=== PATIENT | male | born 1970 | race Caucasian/White ===

== ENCOUNTER 2017-02-17 03:53 | Emergency (ER) | payer MEDICARE, OTHER | END 2017-02-17 05:30 | disposition home or self-care (01) | LOC: ER 03:53 | DX: K08.89 Other specified disorders of teeth and supporting structures (principal); R22.0 Localized swelling, mass and lump, head; K02.9 Dental caries, unspecified; Z86.73 Personal history of transient ischemic attack (TIA), and cerebral infarction without residual deficits; F17.210 Nicotine dependence, cigarettes, uncomplicated; Z79.899 Other long term (current) drug therapy; Z79.02 Long term (current) use of antithrombotics/antiplatelets; Z79.82 Long term (current) use of aspirin | CPT/HCPCS: 96372; 99282-25; 99283 ==